=== PATIENT | female | born 1985 | race African-American/Black ===

== ENCOUNTER 2020-10-05 15:39 | Emergency (ER) | payer MEDICAID ==
[~2020-10-05] VITALS: Ht 162.6 cm; Wt 120.0 kg
[2020-10-05] MEDS ORDERED: KETOROLAC 60MG/2ML VIAL IM ONE (18:00)
[2020-10-05] MEDS ORDERED: DIAZEPAM 5 MG TABLET PO ONE (18:00)
[2020-10-05] MEDS ORDERED: METH-773 MT (20:30)
[2020-10-05] MEDS ORDERED: TRAM50TA3 MT (20:30)
[2020-10-05] MEDS ORDERED: IBUP-2030 MT (20:30)
[2020-10-05 20:41] VITALS: BP 141/94
== END 2020-10-05 20:56 | disposition home or self-care (01) ==
LOC: ER 15:39
DX: M54.5 Low back pain (principal); Z90.49 Acquired absence of other specified parts of digestive tract; Z98.890 Other specified postprocedural states; Z79.899 Other long term (current) drug therapy
CPT/HCPCS: 72100; 81025; 96372; 99283; J1885; Z7610

== ENCOUNTER 2020-12-24 18:18 | Emergency (ER) | payer OTHER, MEDICAID ==
[~2020-12-24] VITALS: Ht 162.6 cm; Wt 120.0 kg
[~2020-12-24 18:18] MED LIST: IBUP-2030 MT; METH-773 MT; TRAM50TA3 MT
[2020-12-24] MEDS ORDERED: IBUP-2029 MT (19:02)
[2020-12-24] MEDS ORDERED: ONDA4TAB11 PO (19:02)
[2020-12-24 20:55] VITALS: BP 114/70
== END 2020-12-24 20:56 | disposition home or self-care (01) ==
LOC: ER 18:27
DX: B34.9 Viral infection, unspecified (principal); Z90.49 Acquired absence of other specified parts of digestive tract; Z20.822 Contact with and (suspected) exposure to COVID-19
CPT/HCPCS: 99281; C9803; U0003; U0005; Z7610

== ENCOUNTER 2020-12-29 16:23 | Emergency (ER) | payer MEDICAID ==
[~2020-12-29] VITALS: Ht 165.1 cm; Wt 100.0 kg
[~2020-12-29 16:23] MED LIST changes: +IBUP-2029 MT; +ONDA4TAB11 PO
[2020-12-29] MEDS ORDERED: METHYLPREDNISOLONE SOD SUCC 125 MG/2 ML VIAL IV STA (17:12)
[2020-12-29] MEDS ORDERED: ALBUTEROL (0.083%) 2.5MG/3ML NEB HHN STA (17:12)
[2020-12-29] MEDS ORDERED: CEFTRIAXONE 1 G PREMIX 50 ML IV ONE (17:15)
[2020-12-29] MEDS ORDERED: SODIUM CHLORIDE 0.9% 1,000 ML IV ONE (17:15)
[2020-12-29] MEDS ORDERED: AZITHROMYCIN 500 MG in DEXT 5% WATER 250 ML IV ONE (17:15)
[2020-12-29 17:43] LABS: BASOPHILS % 0.4 % (0.0-2.0); HEMOGLOBIN. 12.5 g/dL (12.0-16.0); LYMPHOCYTES % 24.6 % (20.0-50.0); MEAN CORPUSCULAR HEMOGLOBIN 29.6 pg (28.0-32.0); MEAN CORPUSCULAR VOLUME 87.8 fL (81.0-99.0); MEAN PLATELET VOLUME 8.6 fl (7.4-10.4); MONOCYTES % 4.9 % (2.0-8.0); NEUTROPHILS % 70.1 % (40.0-76.0); PLATELET 230 x1000/uL (130-400); RED BLOOD CELL COUNT 4.21 mill/uL (4.2-5.4); RED CELL DISTRIBUTION WIDTH 13.2 % (11.6-14.6)
[2020-12-29 17:49] LABS: CHLORIDE 104 mEq/L (98-107)
[2020-12-29 23:50] VITALS: BP 123/76
== END 2020-12-30 00:17 | disposition short-term general hospital (02) ==
LOC: ER 16:23
DX: U07.1 COVID-19 (principal); R09.02 Hypoxemia; Z90.49 Acquired absence of other specified parts of digestive tract; Z98.890 Other specified postprocedural states; Z79.899 Other long term (current) drug therapy; Z20.822 Contact with and (suspected) exposure to COVID-19
CPT/HCPCS: 36415; 71045; 80053; 83605; 83880; 84484; 85025; 87040; 93005; 94640; 96365; 96366; 96368; 96375; 99285; C9803; J0456; J0696; J2930; J7030; J7060; U0003; U0005; Z7610

== ENCOUNTER 2021-03-05 18:12 | Emergency (ER) | payer MEDICAID, OTHER ==
[~2021-03-05] VITALS: Ht 162.6 cm; Wt 116.0 kg
[2021-03-05] MEDS ORDERED: IBUPROFEN 600MG TABLET PO ONE (19:00)
[2021-03-05 19:25] VITALS: BP 135/76
[2021-03-05] MEDS ORDERED: IBUP-2029 MT (19:36)
== END 2021-03-05 20:22 | disposition home or self-care (01) ==
LOC: ER 18:12
DX: S93.491A Sprain of other ligament of right ankle, initial encounter (principal); X50.1XXA Overexertion from prolonged static or awkward postures, initial encounter; Y93.89 Activity, other specified; Y92.9 Unspecified place or not applicable; Z90.49 Acquired absence of other specified parts of digestive tract
CPT/HCPCS: 73610; 99283

== ENCOUNTER 2021-09-24 12:24 | Emergency (ER) | payer OTHER ==
[~2021-09-24] VITALS: Ht 162.6 cm; Wt 121.0 kg
[2021-09-24] MEDS ORDERED: IBUPROFEN 600MG TABLET PO ONE (14:30)
[2021-09-24] MEDS ORDERED: ACETAMINOPHEN 325MG TABLET PO ONE (14:30)
[2021-09-24] MEDS ORDERED: ALBU6.7H9 INH (15:04)
[2021-09-24] MEDS ORDERED: PROM6.254 MT (15:04)
[2021-09-24] MEDS ORDERED: BENZ-16 MT (15:04)
[2021-09-24 16:30] VITALS: BP 138/81
== END 2021-09-24 16:30 | disposition home or self-care (01) ==
LOC: ER 12:24
DX: J06.9 Acute upper respiratory infection, unspecified (principal); B34.9 Viral infection, unspecified; J02.9 Acute pharyngitis, unspecified; R05.9 Cough, unspecified; Z90.49 Acquired absence of other specified parts of digestive tract; Z98.890 Other specified postprocedural states
CPT/HCPCS: 81025; 87070; 87426; 87430; 99283

== ENCOUNTER 2022-02-17 06:16 | Emergency (ER) | payer OTHER ==
[~2022-02-17] VITALS: Ht 162.6 cm; Wt 125.0 kg
[~2022-02-17 06:16] MED LIST changes: +ALBU6.7H9 INH; +BENZ-16 MT; +PROM6.254 MT
[2022-02-17] MEDS ORDERED: MORPHINE SULFATE 4 MG/ML CPJ (NOT FOR IM USE) IV STA (06:40)
[2022-02-17 08:31] LABS: BASOPHILS % 0.5 % (0.0-2.0); EOSINOPHILS % 0.2 % (0.0-5.0); HEMATOCRIT. 37.7 % (36.0-48.0); HEMOGLOBIN. 12.8 g/dL (12.0-16.0); LYMPHOCYTES % 29.2 % (20.0-50.0); MEAN CORPUSCULAR HEMOGLOBIN 30.2 pg (28.0-32.0); MEAN CORPUSCULAR VOLUME 89.2 fL (81.0-99.0); MEAN PLATELET VOLUME 8.4 fl (7.4-10.4); NEUTROPHILS % 63.1 % (40.0-76.0); PLATELET 277 x1000/uL (130-400); RED BLOOD CELL COUNT 4.23 mill/uL (4.2-5.4); RED CELL DISTRIBUTION WIDTH 13.6 % (11.6-14.6)
[2022-02-17 08:38] LABS: CHLORIDE 108 mEq/L (98-107)
[2022-02-17] MEDS ORDERED: MORPHINE SULFATE 4 MG/ML CPJ (NOT FOR IM USE) IV NR (10:15)
[2022-02-17 12:55] VITALS: BP 140/71
== END 2022-02-17 14:05 | disposition home or self-care (01) ==
LOC: ER 06:35
DX: R07.9 Chest pain, unspecified (principal); Z90.49 Acquired absence of other specified parts of digestive tract; Z98.890 Other specified postprocedural states
CPT/HCPCS: 36415; 71045; 80053; 83880; 84484; 85025; 93005; 96374; 99285; J2270